=== PATIENT | male | born 1940 | race Caucasian/White ===

== ENCOUNTER → 2016-09-25 | Outpatient (REF) | payer MEDICARE ==
[2016-09-25 16:12] LABS: ANION GAP 8 MEQ/L (8-16); BLOOD UREA NITROGEN 21 MG/DL (7-18); CALCIUM LEVEL 9.3 MG/DL (8.8-10.2); CARBON DIOXIDE LEVEL 30 MEQ/L (21-32); CHLORIDE LEVEL 102 MEQ/L (98-107); CREATININE FOR GFR 0.99 MG/DL (0.70-1.30); GLOMERULAR FILTRATION RATE > 60.0 (>42); GLUCOSE, FASTING 112 MG/DL (83-110); POTASSIUM SERUM 4.1 MEQ/L (3.5-5.1); SODIUM LEVEL 140 MEQ/L (136-145)
== END ==
LOC: M SFHCPLAZ 14:13
PROVIDERS: ATTEND Family Medicine
DX: I10 Essential (primary) hypertension (principal); Z23 Encounter for immunization
CPT/HCPCS: 36415; 80048; 90662; G0008; G0463

== ENCOUNTER → 2016-10-23 | Outpatient (REF) | payer MEDICARE | LOC: M SFHCPLAZ 11:10 | PROVIDERS: ATTEND Family Medicine | DX: Z12.5 Encounter for screening for malignant neoplasm of prostate (principal) | CPT/HCPCS: 36415; G0103; G0463 ==

== ENCOUNTER → 2017-02-16 | Outpatient (REF) | payer MEDICARE ==
[2017-02-18 00:08] LABS: PSA TOTAL 3.5 ng/mL (0.0-4.0)
== END ==
LOC: M LABSMT 09:15
PROVIDERS: ATTEND Nurse Practitioner Family
DX: Z12.5 Encounter for screening for malignant neoplasm of prostate (principal)

== ENCOUNTER → 2017-03-26 | Outpatient (REF) | payer MEDICARE ==
[2017-03-26 12:01] LABS: ANION GAP 12 MEQ/L (8-16); BLOOD UREA NITROGEN 13 MG/DL (7-18); CALCIUM LEVEL 9.3 MG/DL (8.8-10.2); CARBON DIOXIDE LEVEL 26 MEQ/L (21-32); CHLORIDE LEVEL 103 MEQ/L (98-107); CREATININE FOR GFR 1.07 MG/DL (0.70-1.30); GLOMERULAR FILTRATION RATE > 60.0 (>42); GLUCOSE, FASTING 111 MG/DL (83-110); SODIUM LEVEL 141 MEQ/L (136-145)
== END ==
LOC: M SFHCPLAZ 07:54
PROVIDERS: ATTEND Family Medicine
DX: I10 Essential (primary) hypertension (principal)
CPT/HCPCS: 80048; G0463

== ENCOUNTER → 2017-09-28 | Outpatient (REF) | payer MEDICARE ==
[2017-09-28 13:19] LABS: ANION GAP 10 MEQ/L (8-16); BLOOD UREA NITROGEN 18 MG/DL (7-18); CALCIUM LEVEL 9.2 MG/DL (8.8-10.2); CARBON DIOXIDE LEVEL 28 MEQ/L (21-32); CHLORIDE LEVEL 102 MEQ/L (98-107); CREATININE FOR GFR 0.97 MG/DL (0.70-1.30); GLOMERULAR FILTRATION RATE > 60.0 (>42); GLUCOSE, FASTING 109 MG/DL (70-100); POTASSIUM SERUM 4.4 MEQ/L (3.5-5.1); SODIUM LEVEL 140 MEQ/L (136-145)
== END ==
LOC: M SFHCPLAZ 07:55
DX: I10 Essential (primary) hypertension (principal); Z23 Encounter for immunization
CPT/HCPCS: 80048

== ENCOUNTER → 2020-05-06 | Outpatient (REF) | payer MEDICARE ==
[2020-05-06 19:22] LABS: APPEARANCE, URINE CLEAR (CLEAR); BACTERIA, URINE AUTO NEGATIVE (NEGATIVE); BILIRUBIN, URINE AUTO NEGATIVE (NEGATIVE); BLOOD, URINE BLOOD NEGATIVE (NEGATIVE); COLOR, URINE YELLOW (YELLOW); GLUCOSE, URINE (UA) AUTO NEGATIVE (NEGATIVE); KETONE, URINE AUTO NEGATIVE (NEGATIVE); LEUKOCYTE ESTERASE, URINE AUTO NEGATIVE (NEGATIVE); MUCUS, URINE SMALL (NEGATIVE); NITRITE, URINE AUTO NEGATIVE (NEGATIVE); PROTEIN, URINE AUTO NEGATIVE (NEGATIVE); RBC, URINE AUTO 3 /HPF (0-3); SPECIFIC GRAVITY URINE AUTO 1.017 (1.002-1.035); SQUAMOUS EPITHELIAL CELL UR AU 0 /HPF (0-6); UROBILINOGEN, URINE AUTO 0.2 mg/dL (0.0-2.0); WBC, URINE AUTO 2 /HPF (0-3)
== END ==
LOC: M LAB REF 16:57
PROVIDERS: ATTEND Nurse Practitioner Women's Health
DX: N39.0 Urinary tract infection, site not specified (principal)
CPT/HCPCS: 51798; 81001; 87086; G0463

== ENCOUNTER → 2020-05-17 | Outpatient (REF) | payer MEDICARE | LOC: M SMT 13:41 | PROVIDERS: ATTEND Urology | DX: R33.9 Retention of urine, unspecified (principal) ==

== ENCOUNTER → 2021-04-01 | Outpatient (CLI) | payer MEDICARE ==
--- NOTE | 2021-04-01 16:24 | REP ---
INDICATION: PAIN IN LT LEG /LABS 2ND. COMPARISON: None. TECHNIQUE: Left {lower extremity duplex venous scanning is performed from the groin to the ankle level. FINDINGS: The deep veins are anechoic and fully compressible from the groin to the popliteal fossa in the left lower extremity. Color flow imaging is homogeneous. Spectral Doppler interrogation demonstrates intact respiratory variation in flow and normal manual augmentation of flow. There is no evidence of deep vein thrombosis above the knee. There is no evidence of DVT in the visualized calf veins. Doppler interrogation of the contralateral common femoral vein shows normal symmetric respiratory phasicity. IMPRESSION: No evidence of DVT in the left lower extremity femoropopliteal veins. No DVT in the visible portions of the calf veins. <Electronically signed by Fernandez Turner > 04/01/21 [id number]
[2021-04-01 16:35] LABS: BASO # 0.1 10^3/uL (0.0-0.2); BASO % 0.7 % (0.0-1.0); EOS # 0.3 10^3/uL (0.0-0.5); LYMPH # 1.5 10^3/uL (1.5-5.0); MEAN CORPUSCULAR HEMOGLOBIN 28.1 pg (27.0-33.0); MEAN CORPUSCULAR HGB CONC 32.4 g/dl (32.0-36.5); MONO # 1.2 10^3/uL (0.0-0.8); MONO % 13.6 % (2.0-8.0); NEUTROPHILS # 5.6 10^3/uL (1.5-8.5); NEUTROPHILS % 64.8 % (36.0-66.0); PLATELET COUNT, AUTOMATED 399 10^3/uL (150-450); RED BLOOD COUNT 3.91 10^6/uL (4.30-6.10); WHITE BLOOD COUNT 8.6 10^3/uL (4.0-10.0)
[2021-04-01 17:15] LABS: ERYTHROCYTE SEDIMENTATION RATE 63 mm/hr (0-20)
== END ==
LOC: M RAD 15:30
PROVIDERS: ATTEND Physician Assistant Surgical
DX: M79.662 Pain in left lower leg (principal); Z96.652 Presence of left artificial knee joint